=== PATIENT | male | born 1975 | race Caucasian/White ===

== ENCOUNTER 2023-02-22 06:24 | Emergency (ER) | payer SELFPAY ==
[~2023-02-22] VITALS: Ht 188 cm; Wt 82.0 kg
[2023-02-22 06:29] VITALS: BP 123/92; PULSE 68; RESP 16; TEMP 98.6; O2SAT 100
== END 2023-02-22 07:22 | disposition left against medical advice (07) ==
LOC: ER 06:24
DX: Z53.21 Procedure and treatment not carried out due to patient leaving prior to being seen by health care provider (principal)
CPT/HCPCS: 99281